=== PATIENT | male | born 1990 | race Two or more races ===

== ENCOUNTER 2020-04-20 12:04 | Outpatient (REF) | payer SELFPAY | END 2020-04-20 12:05 | disposition home or self-care (01) | LOC: HO.LAB 12:04 | PROVIDERS: Visit Provider Internal Medicine | DX: Z20.828 Contact with and (suspected) exposure to other viral communicable diseases (principal) | CPT/HCPCS: 87635 ==

== ENCOUNTER 2020-04-27 13:30 | Outpatient (REF) | payer SELFPAY | END 2020-04-27 13:31 | disposition home or self-care (01) | LOC: HO.LAB 13:30 | PROVIDERS: Visit Provider Internal Medicine | DX: Z20.828 Contact with and (suspected) exposure to other viral communicable diseases (principal) | CPT/HCPCS: U0003 ==